=== PATIENT | female | born 1965 | race Caucasian/White ===

== ENCOUNTER 2016-09-27 22:58 | Emergency (ER) | payer BC ==
[~2016-09-27] VITALS: Ht 172.7 cm; Wt 73.3 kg
[2016-09-28 00:42] LABS: CHLORIDE 106 mEq/L (99-109); SODIUM 137 mEq/L (136-147)
[2016-09-28 00:43] LABS: HEMATOCRIT 32.6 % (36.0-46.0); MCH 27.6 PG (29.0-34.0); MCHC 33.1 G/DL (30.0-36.0); MCV 83.4 FL (83-99); MEAN PLAT.VOLUME 12.6 uM^3 (9.5-12.4); PLATELET COUNT 192 K/uL (156-360); RBC DIS.WIDTH-CV 14.1 % (11.8-14.6); RBC DIS.WIDTH-SD 42 % (39-53); RED BLOOD COUNT 3.91 M/uL (3.80-5.20); WHITE BLOOD COUNT 9.5 K/uL (4.1-10.2)
[2016-09-28 00:44] LABS: GLUCOSE 118 mg/dL (70-99)
[2016-09-28 00:46] LABS: ANION GAP 7 MEQ/L (2-14); TOTAL BILIRUBIN < 0.1 mg/dL (0.0-1.0)
[2016-09-28 00:47] LABS: PTT 29.4 (25-32)
[2016-09-28 00:48] LABS: ALKALINE PHOSPHATASE 45 IU/L (3-129); GFR ESTIMATE (CALCULATED) > 59 mL/min/
[2016-09-28 00:49] LABS: UREA NITROGEN (BUN) 7 mg/dL (9-23)
[2016-09-28 00:51] LABS: LIPASE 26 U/L (1.0-51.0)
[2016-09-28 01:59] LABS: ADD MIUA? YES; BILIRUBIN NEGATIVE; BLOOD NEGATIVE; COLOR YELLOW ((YELLOW)); GLUCOSE (STRIP) NEGATIVE; KETONES NEGATIVE; LEUKOCYTES SMALL; NITRITE NEGATIVE; PROTEIN (STRIP) NEGATIVE; SPECIFIC GRAVITY 1.013 (1.000-1.030); UROBILINOGEN 0.2 MG/DL (0.2-1.0)
[2016-09-28 02:20] LABS: BACTERIA 1+ /HPF; EPITHELIAL CELLS 1+ /HPF; MUCUS RARE /LPF; RED BLOOD CELLS 0-5 /HPF (0-5); UCUL ADDED? NO
[2016-09-28] MEDS ORDERED: MOVANTIK25 MG PO (02:37)
[2016-09-28 03:00] VITALS: BP 119/58
[2016-09-28] MEDS ORDERED: OXYCODONE HCL30 MG PO (03:22)
== END 2016-09-28 03:00 | disposition home or self-care (01) ==
LOC: EME 22:58
PROVIDERS: Physician Assistant Medical
PROC: 059 Upper Veins, Drainage (ICD-10-PCS; principal; 2016-09-28)
DX: K59.00 Constipation, unspecified (principal); R10.11 Right upper quadrant pain; B19.20 Unspecified viral hepatitis C without hepatic coma; Z85.42 Personal history of malignant neoplasm of other parts of uterus; Z88.0 Allergy status to penicillin; Z88.1 Allergy status to other antibiotic agents
CPT/HCPCS: 74176; 80053; 81003; 82140; 83690; 85027; 85610; 85730; 99281; 99285; J2270; J2550; J3010; J7030